=== PATIENT | male | born 1995 | race Hispanic/Latino ===

== ENCOUNTER 2023-01-13 19:07 | Emergency (ER) | payer OTHER ==
[~2023-01-13] VITALS: Ht 180.3 cm; Wt 67.6 kg
[2023-01-13 19:56] LABS: BASOPHILS % (AUTO) 0.8 % (0.0-5.0); EOSINOPHILS % (AUTO) 2.3 % (0.0-8.0); HEMATOCRIT 40.6 % (42-54); MEAN CORPUSCULAR HEMOGLOBIN 31.2 pg (27.0-33.0); MEAN CORPUSCULAR HGB CONC 34.2 g/dL (32.0-36.0); MONOCYTES % (AUTO) 4.6 % (3.0-13.0); NEUTROPHILS % (AUTO) 64.8 % (40.0-77.0); PLATELET COUNT (AUTO) 267 K/uL (130-400); RED BLOOD CELL COUNT(AUTO) 4.46 MIL/uL (4.50-6.20); RED CELL DISTRIBUTION WIDTH 12.3 % (11.0-15.5); WHITE BLOOD COUNT (AUTO) 8.5 K/uL (4.8-10.8)
[2023-01-13 20:07] LABS: INR 1.01 (0.85-1.15)
[2023-01-13 20:08] LABS: PARTIAL THROMBOPLASTIN TIME 28.1 SEC (26.3-35.5)
[2023-01-13 20:14] LABS: CREATININE 0.9 mg/dL (0.5-1.5); POTASSIUM 3.9 mmol/L (3.5-5.1)
[2023-01-13 20:26] LABS: ALBUMIN 4.3 g/dL (3.5-5.0); MAGNESIUM 2.1 mg/dL (1.80-2.40); TOTAL PROTEIN, SERUM 7.7 g/dL (6.0-8.3)
[2023-01-13 22:41] LABS: APPEARANCE,URINE CLEAR (CLEAR); BILIRUBIN,URINE NEGATIVE (NEGATIVE); COLOR,URINE LIGHT-YELLOW (YELLOW); GLUCOSE, URINE (UA) NEGATIVE (NEGATIVE); KETONES,URINE NEGATIVE (NEGATIVE); LEUKOCYTE ESTERASE ,URINE NEGATIVE Leu/uL (NEGATIVE); NITRATE,URINE NEGATIVE (NEGATIVE); OCCULT BLOOD,URINE NEGATIVE (NEGATIVE); PH,URINE 6.5 (5.0-8.0); PROTEIN,URINE NEGATIVE (NEGATIVE); UROBILINOGEN,URINE 0.2 mg/dL (0.2-1.0)
[2023-01-13 22:45] LABS: AMPHET/METH SCREEN,URINE NEGATIVE (NEGATIVE); BARBITURATE SCREEN, URINE NEGATIVE (NEGATIVE); BENZODIAZEPINES SCREEN,URINE NEGATIVE (NEGATIVE); CANNABINOID SCREEN,URINE POSITIVE (NEGATIVE); COCAINE SCREEN,URINE NEGATIVE (NEGATIVE); OPIATE SCREEN,URINE NEGATIVE (NEGATIVE); PHENCYCLIDINE SCREEN,URINE NEGATIVE (NEGATIVE)
[2023-01-13 22:51] VITALS: BP 131/78
[2023-01-13] MEDS ORDERED: IBUP-2070 PO (22:56)
== END 2023-01-13 23:08 | disposition home or self-care (01) ==
LOC: EDH 19:07
DX: M94.0 Chondrocostal junction syndrome [Tietze] (principal); R07.89 Other chest pain; F41.9 Anxiety disorder, unspecified; R25.2 Cramp and spasm
CPT/HCPCS: 36415; 71045; 80053; 80305; 81003; 83735; 84484; 85025; 85610; 85730; 93005

== ENCOUNTER 2023-01-16 21:40 | Emergency (ER) | payer OTHER ==
[~2023-01-16] VITALS: Ht 175.3 cm; Wt 63.5 kg
[~2023-01-16 21:40] MED LIST: IBUP-2070 PO
[2023-01-16 23:13] VITALS: BP 128/85
[2023-01-17 00:55] LABS: BASOPHILS % (AUTO) 0.9 % (0.0-5.0); EOSINOPHILS % (AUTO) 2.8 % (0.0-8.0); HEMATOCRIT 42.9 % (42-54); LYMPHOCYTES % (AUTO) 32.7 % (21.0-51.0); MEAN CORPUSCULAR HEMOGLOBIN 31.1 pg (27.0-33.0); MEAN CORPUSCULAR HGB CONC 34.3 g/dL (32.0-36.0); MEAN CORPUSCULAR VOLUME 90.9 fL (79-99); MONOCYTES % (AUTO) 6.3 % (3.0-13.0); NEUTROPHILS % (AUTO) 57.1 % (40.0-77.0); PLATELET COUNT (AUTO) 307 K/uL (130-400); RED BLOOD CELL COUNT(AUTO) 4.72 MIL/uL (4.50-6.20); RED CELL DISTRIBUTION WIDTH 12.4 % (11.0-15.5); WHITE BLOOD COUNT (AUTO) 9.4 K/uL (4.8-10.8)
[2023-01-17 00:59] LABS: BILIRUBIN,URINE NEGATIVE (NEGATIVE); COLOR,URINE YELLOW (YELLOW); GLUCOSE, URINE (UA) NEGATIVE (NEGATIVE); KETONES,URINE NEGATIVE (NEGATIVE); LEUKOCYTE ESTERASE ,URINE NEGATIVE Leu/uL (NEGATIVE); NITRATE,URINE NEGATIVE (NEGATIVE); OCCULT BLOOD,URINE NEGATIVE (NEGATIVE); PROTEIN,URINE 30 mg/dL (NEGATIVE); UROBILINOGEN,URINE 0.2 mg/dL (0.2-1.0)
[2023-01-17 01:00] LABS: APPEARANCE,URINE CLEAR (CLEAR)
[2023-01-17 01:05] LABS: AMPHET/METH SCREEN,URINE NEGATIVE (NEGATIVE); BARBITURATE SCREEN, URINE NEGATIVE (NEGATIVE); BENZODIAZEPINES SCREEN,URINE NEGATIVE (NEGATIVE); CANNABINOID SCREEN,URINE POSITIVE (NEGATIVE); COCAINE SCREEN,URINE NEGATIVE (NEGATIVE); OPIATE SCREEN,URINE NEGATIVE (NEGATIVE); PHENCYCLIDINE SCREEN,URINE NEGATIVE (NEGATIVE)
[2023-01-17 01:09] LABS: CREATININE 0.9 mg/dL (0.5-1.5); POTASSIUM 4.3 mmol/L (3.5-5.1)
[2023-01-17 01:16] LABS: ALBUMIN 4.5 g/dL (3.5-5.0)
[2023-01-17] MEDS ORDERED: KETOROLAC 15MG/ML VIAL (15MG/ML) IM ONE (02:30)
[2023-01-17] MEDS ORDERED: ACETAMINOPHEN 325 MG TAB PO ONE (02:30)
[2023-01-17] MEDS ORDERED: 0.9% NACL 500ML IV.SOLN 500 ML IV SCH (02:30)
== END 2023-01-17 03:11 | disposition home or self-care (01) ==
LOC: EDH 21:40
DX: F41.9 Anxiety disorder, unspecified (principal); R19.7 Diarrhea, unspecified; Z20.822 Contact with and (suspected) exposure to COVID-19
CPT/HCPCS: 99285; 87635; 84484; 80053; 80305; 85025; 87880; 87804 ×2; 36415; 81003; 96360; 71045; 93005; 96372; C9803; J1885

== ENCOUNTER 2023-08-28 17:39 | Emergency (ER) | payer OTHER ==
[~2023-08-28] VITALS: Ht 177.8 cm; Wt 77.1 kg
[2023-08-28 18:22] LABS: APPEARANCE,URINE CLEAR (CLEAR); BILIRUBIN,URINE NEGATIVE (NEGATIVE); COLOR,URINE LIGHT-YELLOW (YELLOW); GLUCOSE, URINE (UA) NEGATIVE (NEGATIVE); KETONES,URINE NEGATIVE (NEGATIVE); LEUKOCYTE ESTERASE ,URINE NEGATIVE Leu/uL (NEGATIVE); NITRATE,URINE NEGATIVE (NEGATIVE); OCCULT BLOOD,URINE NEGATIVE (NEGATIVE); PROTEIN,URINE NEGATIVE (NEGATIVE); UROBILINOGEN,URINE 0.2 mg/dL (0.2-1.0)
[2023-08-28 18:28] LABS: ADD UA MICROSCOPIC YES
[2023-08-28 18:35] LABS: MUCUS,URINE RARE LPF (None Seen)
[2023-08-28] MEDS ORDERED: IBUP-2077 PO (19:22)
[2023-08-28 19:30] VITALS: BP 146/82; PULSE 67; RESP 16; O2SAT 98
[2023-08-29] MEDS ORDERED: CEPH500B PO (10:41)
[2023-08-29] MEDS ORDERED: TAMS-1 PO (10:41)
[2023-08-29] MEDS ORDERED: ACET-2079 PO (10:41)
== END 2023-08-28 19:33 | disposition home or self-care (01) ==
LOC: EDH 17:39
DX: I86.1 Scrotal varices (principal); F41.9 Anxiety disorder, unspecified; Z98.890 Other specified postprocedural states
CPT/HCPCS: 76870; 81001

== ENCOUNTER 2023-08-29 04:49 | Emergency (ER) | payer OTHER ==
[~2023-08-29] VITALS: Ht 177.8 cm; Wt 77.1 kg
[~2023-08-29 04:49] MED LIST changes: +IBUP-2077 PO
[2023-08-29] MEDS ORDERED: 0.9%NACL 1000ML 2,190 ML IV ONE (05:30)
[2023-08-29] MEDS ORDERED: KETOROLAC 30MG VIAL (30MG/ML) IVP ONE (05:30)
[2023-08-29] MEDS ORDERED: FAMOTIDINE 20MG VIAL IV ONE (05:30)
[2023-08-29] MEDS ORDERED: METOCLOPRAMIDE 10 MG/2 ML VIAL IVP ONE (05:30)
[2023-08-29 05:46] LABS: APPEARANCE,URINE CLEAR (CLEAR); BILIRUBIN,URINE NEGATIVE (NEGATIVE); COLOR,URINE LIGHT-YELLOW (YELLOW); GLUCOSE, URINE (UA) NEGATIVE (NEGATIVE); KETONES,URINE NEGATIVE (NEGATIVE); LEUKOCYTE ESTERASE ,URINE NEGATIVE Leu/uL (NEGATIVE); NITRATE,URINE NEGATIVE (NEGATIVE); OCCULT BLOOD,URINE LARGE (NEGATIVE); PH,URINE 6.5 (5.0-8.0); PROTEIN,URINE 20 mg/dL (NEGATIVE); UROBILINOGEN,URINE 0.2 mg/dL (0.2-1.0)
[2023-08-29 05:49] LABS: CREATININE 1.2 mg/dL (0.5-1.5); POTASSIUM 3.1 mmol/L (3.5-5.1)
[2023-08-29 05:50] LABS: ADD UA MICROSCOPIC YES; BASOPHILS # (AUTO) 0.04 K/uL (0.00-0.20); BASOPHILS % (AUTO) 0.3 % (0.0-5.0); EOSINOPHILS # (AUTO) 0.31 K/uL (0.00-0.70); EOSINOPHILS % (AUTO) 2.3 % (0.0-8.0); IMMATURE GRANULOCYTE ABSOLUTE 0.05 K/uL (0-1); LYMPHOCYTES # (AUTO) 3.2 K/uL (1.0-4.8); LYMPHOCYTES % (AUTO) 24.5 % (21.0-51.0); MEAN CORPUSCULAR HGB CONC 34.5 g/dL (32.0-36.0); MONOCYTES # (AUTO) 0.8 K/uL (0.1-1.0); MONOCYTES % (AUTO) 5.7 % (3.0-13.0); NEUTROPHILS # (AUTO) 8.8 K/uL (1.8-7.7); NEUTROPHILS % (AUTO) 66.8 % (40.0-77.0); PLATELET COUNT (AUTO) 312 K/uL (130-400); RED BLOOD CELL COUNT(AUTO) 4.22 MIL/uL (4.50-6.20); RED CELL DISTRIBUTION WIDTH 12.6 % (11.0-15.5); WHITE BLOOD COUNT (AUTO) 13.2 K/uL (4.8-10.8)
[2023-08-29 05:55] LABS: MUCUS,URINE RARE LPF (None Seen); SQUAMOUS EPITHELIAL CELL,UR RARE /HPF (0-2)
[2023-08-29] MEDS ORDERED: HYDROMORPHONE 1 MG INJ IVP ONE (06:45)
[2023-08-29] MEDS ORDERED: CEPH500B PO (10:41)
[2023-08-29] MEDS ORDERED: TAMS-1 PO (10:41)
[2023-08-29] MEDS ORDERED: ACET-2079 PO (10:41)
[2023-08-29 10:58] VITALS: BP 120/70; PULSE 79; RESP 16; O2SAT 100
== END 2023-08-29 10:59 | disposition home or self-care (01) ==
LOC: EDH 04:49
DX: N23 Unspecified renal colic (principal); N20.9 Urinary calculus, unspecified; F41.9 Anxiety disorder, unspecified; Z79.899 Other long term (current) drug therapy; Z98.890 Other specified postprocedural states
CPT/HCPCS: 99285; 74176; 96374; 96375; 96361; 80048; 85025; 81001; 36415; J3490; J1170; J7030; J1885; J2765